=== PATIENT | male | born 1985 | race Caucasian/White ===

== ENCOUNTER 2019-01-13 18:24 | Emergency (ER) | payer BC ==
--- NOTE | 2019-01-13 18:46 | ER Document Report ---
ED Medical Screen (RME) - General Chief Complaint: Chest Pain Stated Complaint: CHEST PAIN Time Seen by Provider: 01/13/19 18:34 Primary Care Provider: TUSHAR HEIN MD [Primary Care Provider] - Follow up as needed TRAVEL OUTSIDE OF THE [place] IN LAST 30 DAYS: No - HPI Notes: 01/13/19 18:45 Patient is a 34-year-old male with a history of childhood asthma who presents complaining of sternal chest pain that is described as a tightness that does not radiate over the past couple days. Patient states that he is also had chronic issues with sensation of food being stuck in his esophagus when he eats since he was a child. Patient states that eating does make symptoms worse as well. Patient states that he is otherwise able to pass solids and liquids without any difficulty. Denies drug allergies. Patient does admit to smoking. Denies any prolonged immobilization, distance travel, recent surgery/trauma, personal cancer history, hormone use, or previous DVT/PE. Denies MARTINI, fever, neck pain, URI, n/v/d, Abd pain, dysuria, back pain, or rash. I have treated and performed a rapid initial assessment of this patient. A comprehensive ED assessment and evaluation of the patient, analysis of test results and completion of medical decision making process will be conducted by additional ED providers. PHYSICAL EXAMINATION: GENERAL: Well-appearing, well-nourished and in no acute distress. A&Ox4. Answers questions appropriately. LUNGS: Breath sounds clear to auscultation bilaterally and equal. No wheezes rales or rhonchi. HEART: Regular rate and rhythm without murmurs, rubs, gallops. Extremities: No cyanosis, clubbing, or edema b/l. Blas negative bilaterally. No lower extremity asymmetry. NEUROLOGICAL: Normal speech, normal gait. PSYCH: Normal mood, normal affect. - Related Data Allergies/Adverse Reactions: No Known Allergies Allergy (Verified 01/13/19 18:27) Physical Exam - Vital signs Vitals: Temp Pulse Resp BP Pulse Ox 98.5 F 100 16 137/81 H 98 01/13/19 18:28 01/13/19 18:28 01/13/19 18:28 01/13/19 18:28 01/13/19 18:28 Course - Vital Signs Vital signs: Temp Pulse Resp BP Pulse Ox 98.5 F 100 16 137/81 H 98 01/13/19 18:28 01/13/19 18:28 01/13/19 18:28 01/13/19 18:28 01/13/19 18:28 Doctor's Discharge - Discharge Referrals: TUSHAR HEIN MD [Primary Care Provider] - Follow up as needed
[2019-01-13 19:18] LABS: ABSOLUTE LYMPHOCYTES (AUTO) 0.7 10^3/uL (0.5-4.7); ABSOLUTE MONOCYTES (AUTO) 0.9 10^3/uL (0.1-1.4); ABSOLUTE NEUT (AUTO) 5.7 10^3/uL (1.7-8.2); BASOPHILS % (AUTO) 0.1 % (0-2); EOSINOPHILS % (AUTO) 0.6 % (0-6); HEMATOCRIT 42.8 % (37.9-51.0); HEMOGLOBIN 15.1 g/dL (13.5-17.0); LYMPHOCYTES % (AUTO) 9.9 % (13-45); MEAN CORPUSCULAR HEMOGLOBIN 30.8 pg (27.0-33.4); MEAN CORPUSCULAR HGB CONC 35.2 g/dL (32.0-36.0); MEAN CORPUSCULAR VOLUME 87 fl (80-97); MONOCYTES % (AUTO) 12.6 % (3-13); PLATELET COUNT 139 10^3/uL (150-450); RED BLOOD COUNT 4.89 10^6/uL (4.35-5.55); RED CELL DISTRIBUTION WIDTH 12.2 % (11.5-14.0); SEGMENTED NEUTROPHILS % (AUTO) 76.8 % (42-78); TOTAL CELLS COUNTED % (AUTO) 100 %; WHITE BLOOD COUNT 7.4 10^3/uL (4.0-10.5)
[2019-01-13 19:44] LABS: ALBUMIN 4.3 g/dL (3.5-5.0); ALKALINE PHOSPHATASE 74 U/L (38-126); ANION GAP 13 (5-19); ASPARTATE AMINO TRANSFERASE 26 U/L (17-59); BILIRUBIN,DIRECT 0.3 mg/dL (0.0-0.4); BILIRUBIN,TOTAL 0.7 mg/dL (0.2-1.3); BLOOD UREA NITROGEN 10 mg/dL (7-20); CALCIUM 9.4 mg/dL (8.4-10.2); CARBON DIOXIDE 26 mmol/L (22-30); CHLORIDE 102 mmol/L (98-107); GLUCOSE 117 mg/dL (75-110); POTASSIUM 3.5 mmol/L (3.6-5.0); TOTAL PROTEIN 7.1 g/dL (6.3-8.2)
--- NOTE | 2019-01-13 20:10 | RADIOLOGY REPORT (SQ) ---
XR CHEST 2 VIEWS EXAM DATE: 01/13/2019 6:37 PM CDT HISTORY: CP. COMPARISON: None. FINDINGS: The heart size is within normal limits. No consolidation, pleural effusion, or pneumothorax is seen. The bony thorax is intact. IMPRESSION: No evidence of acute cardiopulmonary disease.
--- NOTE | 2019-01-13 22:09 | ER Document Report ---
ED General - General Chief Complaint: Chest Pain Stated Complaint: CHEST PAIN Time Seen by Provider: 01/13/19 18:34 Primary Care Provider: VÍCTOR TEE MD [ACTIVE STAFF] - 01/15/19 JASMEET PAULINO MD [ACTIVE STAFF] - 01/15/19 Notes: Patient is a pleasant 34-year-old male presents with complaints of pain with swallowing. Patient says that he has been having swallowing difficulty since he was a kid however in the last 1 to 2 weeks he has noticed pain upon swallowing is gradually worsened. Feels the pain in his lower chest whenever he eats or drinks something. He says he still able to swallow however it is just painful. He said no vomiting. No spitting up. Says he has lost some weight because it does hurt to eat. He has never been scoped. He is never been evaluated for this. He denies any blood in his stool. No black or tarry stools. No spitting up of blood. No fevers. No infections. He is a smoker. He does not drink alcohol on a regular basis. No other complaints at this time. TRAVEL OUTSIDE OF THE [place] IN LAST 30 DAYS: No - Related Data Allergies/Adverse Reactions: No Known Allergies Allergy (Verified 01/13/19 18:27) Past Medical History - Social History Smoking Status: Current Every Day Smoker Frequency of alcohol use: Occasional Drug Abuse: None Family History: Reviewed & Not Pertinent Patient has suicidal ideation: No Patient has homicidal ideation: No Pulmonary Medical History: Reports: Hx Asthma - as a child Renal/ Medical History: Denies: Hx Peritoneal Dialysis GI Medical History: Reports: Hx Gastroesophageal Reflux Disease Review of Systems - Review of Systems Notes: My Normal Review Basic REVIEW OF SYSTEMS: CONSTITUTIONAL : Denies fever, chills, or sweats. Denies recent illness. EENT: Denies eye, ear, throat, or mouth pain or symptoms. Denies nasal or s inus congestion. CARDIOVASCULAR: Pain in lower substernal region with swallowing. RESPIRATORY: Denies cough, cold, or chest congestion. Denies shortness of breath, difficulty breathing, or wheezing. GASTROINTESTINAL: Denies abdominal pain. Denies nausea, vomiting, or diarrhea. MUSCULOSKELETAL: Denies neck or back pain or joint pain or swelling. SKIN: Denies rash or skin lesions. NEUROLOGICAL: Denies altered mental status or loss of consciousness. Denies headache. Denies weakness or paralysis or loss of use of either side. Denies problems with gait or speech. Denies sensory or motor loss. ALL OTHER SYSTEMS REVIEWED AND NEGATIVE. Physical Exam - Vital signs Vitals: Temp Pulse Resp BP Pulse Ox 98.5 F 100 16 137/81 H 98 01/13/19 18:28 01/13/19 18:28 01/13/19 18:28 01/13/19 18:28 01/13/19 18:28 - Notes Notes: General Appearance: Well nourished, alert, cooperative, no acute distress, no obvious discomfort. Well-appearing. Vitals: reviewed, See vital signs table. Eyes: PERRL, EOMI, Conjuctiva clear Mouth: No decreasd moisture Throat: No tonsillar inflammation, No airway obstruction, No lymphadenopathy Neck: Supple, no neck tenderness, no neck swelling Lungs: No wheezing, No rales, No rhonci, No accessory muscle use, good air exchange bilaterally. Heart: Normal rate, Regular rythm, No murmur, no rub Abdomen: Normal BS, soft, No rigidity, mild epigastric abdominal tenderness palpation, No guarding, no rebound, no abdominal masses, no organomegaly Skin: warm, dry, appropriate color Neuro: speech clear, oriented x 3, normal affect, responds appropriately to questions. Course - Re-evaluation Re-evalutation: 01/13/19 23:44 01/14/19 01:[address] scan did not show any concerning findings. I am unable to get a barium swallow tonight as x-ray tech informed me that the radiology PA is out of town and the radiologist is in [place] and she was told therefore he would only come in if it was a dire emergency. Currently he is not vomiting of blood he is able still swallow liquids and he is eating and swallowing yogurt so therefore cannot justify that this is a emergent need. I informed the patient that he needs an endoscopy. I will refer him to GI. He does have insurance and says he shouldn't have a problem following up. He will call the office Tuesday. I will place him on liquid Zantac as well as Carafate. I suspect he may have ongoing esophagitis with a stricture. I informed him that he must have a low threshold to return to ER if he has worsening pain with swallowing, inability to swallow liquids, any light coming from his mouth or vomiting of blood, or if he feels like he is worsening in any way. Patient agrees with plan will be discharged home. Dictation of this chart was performed using voice recognition software; therefore, there may be some unintended grammatical errors. 01/14/19 06:24 - Vital Signs Vital signs: Temp Pulse Resp BP Pulse Ox 98.2 F 100 17 117/71 99 01/14/19 01:19 01/13/19 18:28 01/14/19 01:18 01/14/19 01:19 01/14/19 01:18 - Laboratory Result Diagrams: 01/13/19 19:00 01/13/19 19:00 Laboratory results interpreted by me: 01/13/19 01/13/19 19:00 19:00 Plt Count 139 L Lymphocytes % 9.9 L Potassium 3.5 L Glucose 117 H - EKG Interpretation by Me Additional EKG results interpreted by me: 01/13/19 22:08 EKG is reviewed and interpreted by me. EKG shows sinus rhythm with a rate of [address] segment elevation or depression. No ischemic T wave inversions. AK interval, QRS duration, QT intervals are within normal range. Old EKG for comparison is not available. Discharge - Discharge Clinical Impression: Dysphagia Condition: Good Disposition: HOME, SELF-CARE Additional Instructions: Please take the medications as prescribed. Please return to the ER immediately if you develop inability to swallow liquids, fevers, vomiting or spitting up of blood, worsening pain, or if you feel that you are worsening in any way. Please eat only soft foods. Do not eat any foods that you have to chew until you are cleared by the GI physician. I have given you the number to the 2 GI physicians (Dr. Paulino and Dr. Tee). Please call their offices tuesday and see who can get you in the soonest as you will likely need an endoscopy. Prescriptions: Ranitidine HCl [Zantac Syrp 150 mg/10 ml Ud (Pediatric Only)] 150 mg PO DAILY 30 Days udc Sucralfate [Carafate] 1 gm PO ACHS 7 Days oral.susp Forms: Return to Work Referrals: JASMEET PAULINO MD [ACTIVE STAFF] - 01/15/19 VÍCTOR TEE MD [ACTIVE STAFF] - 01/15/19
[2019-01-13] MEDS ORDERED: METOCLOPRAMIDE HCL ORAL SOLN 10 MG/10 ML UDCUP PO ONE (22:36)
[2019-01-13] MEDS ORDERED: LIDOCAINE 2% VISCOUS SOLN 20 ML UDCUP PO ONE (22:36)
[2019-01-13] MEDS ORDERED: NORMAL SALINE 1000 ML 1,000 ML IV ONE (22:36)
[2019-01-13] MEDS ORDERED: MAG HYDROX/AL HYDROX/SIMETH SUSP 30 ML UDCUP PO ONE (22:36)
--- NOTE | 2019-01-14 00:41 | RADIOLOGY REPORT (SQ) ---
EXAM DESCRIPTION: CT CHEST WITH IV CONTRAST COMPLETED DATE/TME: 01/13/2019 22:36 CLINICAL HISTORY: 34 years Male, difficulty swallowing Comparison: CR, same day. Technique: IV contrast. Coronal and sagittal reformat. This exam was performed according to our departmental dose-optimization program, which includes automated exposure control, adjustment of the mA and/or kV according to patient size and/or use of iterative reconstruction technique. [facility]: Dose Right [facility]: CareDose [facility]: Dose Right [facility]: Teradose 4D [facility]: [employer] LIMITATIONS: None Findings: Mild splenomegaly index of 693. Mild gynecomastia. Inferior neck, axillae, mediastinum, lungs, airway, lymphatics, heart, vasculature, upper abdomen, and musculoskeleton appear otherwise unremarkable. Impression: Mild splenomegaly. No acute cardiopulmonary findings.
[2019-01-14] MEDS ORDERED: POTASSIUM CHLORIDE 20 MEQ PACKET PO ONE (01:12)
[2019-01-14 01:27] VITALS: BP 117/71
--- NOTE | 2019-01-14 01:55 | EKG REPORT ---
SEVERITY:- ABNORMAL ECG - SINUS RHYTHM PROBABLE LEFT VENTRICULAR HYPERTROPHY : Confirmed by: Mehnaz Gallegos MD 14-Jan-2019 01:54:36
== END 2019-01-14 01:27 | disposition home or self-care (01) ==
LOC: ER 18:24
DX: R13.10 Dysphagia, unspecified (principal); R07.9 Chest pain, unspecified; R63.4 Abnormal weight loss; F17.200 Nicotine dependence, unspecified, uncomplicated; Z87.19 Personal history of other diseases of the digestive system
CPT/HCPCS: 93005; 99285; 96361; 96374; 36415; 83690; 85025; 80053; 84484; 71046; 71260; 93010; J3490 ×2; J7030

== ENCOUNTER 2019-02-16 13:27 | Emergency (ER) | payer BC ==
[2019-02-16] MEDS ORDERED: OXYCODONE-ACETAMINOPHEN 5-325 MG TABLET PO ONE (15:19)
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
[2019-02-16 18:02] VITALS: BP 110/86
== END 2019-02-16 18:00 | disposition home or self-care (01) ==
LOC: ER 13:27
DX: S16.1XXA Strain of muscle, fascia and tendon at neck level, initial encounter (principal); S29.012A Strain of muscle and tendon of back wall of thorax, initial encounter; R51 Headache; R11.0 Nausea; V89.2XXA Person injured in unspecified motor-vehicle accident, traffic, initial encounter; Z91.011 Allergy to milk products
CPT/HCPCS: 70450; 72070; 72125; 99284